=== PATIENT | male | born 1965 | race Two or more races ===

== ENCOUNTER 2017-02-13 18:08 | Inpatient (IN) | payer OTHER ==
[~2017-02-13] VITALS: Ht 175.3 cm; Wt 74.2 kg
[2017-02-13] MEDS ORDERED: ONDANSETRON ODT 4 MG TAB.RAPDIS SL ONE (19:15)
[2017-02-13] MEDS ORDERED: HYDROMORPHONE 1 MG/1 ML DISP.SYRIN IM ONE (19:15)
--- NOTE | 2017-02-13 19:36 | NUR ---
Received report from [facility]. Assumed care of pt at this time. Pt c/o severe rib pain and headache. Pt medicated for discomfort, will monitor for effects of medication. Pt to CT via maia
[2017-02-13] MEDS ORDERED: HYDROMORPHONE 1 MG/1 ML DISP.SYRIN ONE ×2 (19:38→22:29)
[2017-02-13] MEDS ORDERED: ONDANSETRON ODT 4 MG TAB.RAPDIS ONE (19:38)
--- NOTE | 2017-02-13 20:08 | NUR ---
Pt returned from CT via gurney. Sts pain improved. Sts pain is 5/10. Pt resting in position of comfort for self. Resp even and unlabored.
[2017-02-13] MEDS ORDERED: IV NORMAL SALINE 1000 ML BAG IV ONE (20:45)
[2017-02-13] MEDS ORDERED: MORPHINE SULFATE 4 MG/1 ML DISP.SYRIN IV ONE (20:45)
[2017-02-13 20:58] LABS: BASOPHILS # (AUTO) 0.1 K/uL (0.0-8.0); BASOPHILS % (AUTO) 0.8 % (0.0-2.0); EOSINOPHILS # (AUTO) 0.1 K/uL (0.0-0.7); EOSINOPHILS % (AUTO) 0.6 % (0.0-7.0); HEMOGLOBIN 14.1 G/DL (14.0-18.0); LYMPHOCYTES % (AUTO) 15.8 % (20.5-51.5); MEAN CORPUSCULAR HEMOGLOBIN 29.6 UUG (27.0-31.0); MEAN CORPUSCULAR HGB CONC 34 g/dL (32.0-37.0); MEAN CORPUSCULAR VOLUME 88.3 FL (82.0-92.0); MONOCYTES # (AUTO) 0.7 K/UL (0.1-1.30); MONOCYTES % (AUTO) 5.5 % (0.0-11.0); NEUTROPHILS # (AUTO) 9.5 K/UL (1.8-8.9); NEUTROPHILS % (AUTO) 77.3 % (38.5-71.5); PLATELET COUNT (AUTO) 196 K/UL (150-450); RED BLOOD CELL COUNT(AUTO) 4.75 MIL/UL (4.7-6.1); WHITE BLOOD COUNT (AUTO) 12.4 K/UL (4.0-11.2)
[2017-02-13 21:18] LABS: CREATININE 1.3 mg/dL (0.6-1.3); POTASSIUM 4.4 mmol/L (3.5-5.1)
[2017-02-13 21:23] LABS: BILIRUBIN,TOTAL 0.5 mg/dL (0.2-1.0); TOTAL PROTEIN, SERUM 7.3 g/dL (6.4-8.2)
[2017-02-13] MEDS ORDERED: NORMAL SALINE FLUSH 10 ML DISP.SYRIN ONE (21:55)
[2017-02-13] MEDS ORDERED: IOHEXOL 300MG/ML 100 ML INFUS..BTL ONE (21:55)
[2017-02-13] MEDS ORDERED: IV NORMAL SALINE 250 ML IV ONE (21:55)
--- NOTE | 2017-02-13 22:00 | NUR ---
Pt to CT via maia
[2017-02-13] MEDS ORDERED: MORPHINE SULFATE 4 MG/1 ML DISP.SYRIN ONE (22:03)
[2017-02-13] MEDS ORDERED: HYDROMORPHONE 1 MG/1 ML DISP.SYRIN IV ONE (22:15)
[2017-02-13] MEDS ORDERED: ONDANSETRON 4 MG/2 ML VIAL IV ONE (22:15)
--- NOTE | 2017-02-13 22:17 | NUR ---
Pt returned from CT, c/o increased severe pain. MD notified, awaiting further orders.
[2017-02-13] MEDS ORDERED: ONDANSETRON 4 MG/2 ML VIAL ONE (22:29)
--- NOTE | 2017-02-13 22:45 | NUR ---
Pt sts pain improved with medication. Pt resting in position of comfort for self. Fluid bolus cont infusing freely to gravity
[2017-02-13] MEDS ORDERED: TAMSULOSIN HCL 0.4 MG CAP.SR.24H PO ONE (23:15)
[2017-02-13] MEDS ORDERED: KETOROLAC TROMETHAMINE 15 MG INJ IVP ONE (23:15)
[2017-02-14] MEDS ORDERED: HYDROMORPHONE 1 MG/1 ML DISP.SYRIN IV ONE (00:45)
--- NOTE | 2017-02-14 01:06 | NUR ---
Call placed to [facility], Dr. Valdez will be paged.
--- NOTE | 2017-02-14 01:07 | NUR ---
Pt c/o pain increasing. MD notified and pt medicated, will monitor for effects of medication. Pt repositioned for comfort.
[2017-02-14] MEDS ORDERED: KETOROLAC TROMETHAMINE 15 MG INJ ONE (01:10)
[2017-02-14] MEDS ORDERED: TAMSULOSIN HCL 0.4 MG CAP.SR.24H ONE (01:11)
[2017-02-14] MEDS ORDERED: HYDROMORPHONE 1 MG/1 ML DISP.SYRIN ONE (01:11)
[2017-02-14] MEDS ORDERED: ACETAMINOPHEN 325 MG TABLET PO PRN (01:30)
[2017-02-14] MEDS ORDERED: Z GUARD REMEDY PASTE 57 GM TUBE TOP PRN (01:30)
[2017-02-14] MEDS ORDERED: TAMSULOSIN HCL 0.4 MG CAP.SR.24H PO ONE (01:30)
[2017-02-14] MEDS ORDERED: HYDROCODONE/APAP 5-325MG TABLET PO PRN (01:30)
[2017-02-14] MEDS ORDERED: CEFTRIAXONE 1 G in IV DEXTROSE 5% 50 ML IV SCH (01:30)
[2017-02-14] MEDS ORDERED: MAGNESIUM HYDROXIDE 30 ML LIQUID UDC PO PRN (01:30)
[2017-02-14] MEDS ORDERED: ONDANSETRON 4 MG/2 ML VIAL IV PRN (01:30)
--- NOTE | 2017-02-14 01:40 | NUR ---
Pt resting in position of comfort for self. Pt denies pain at this time. Admission pending
--- NOTE | 2017-02-14 02:28 | NUR ---
Report called to [facility]m. Preparing to transfer pt to the floor.
--- NOTE | 2017-02-14 03:40 | NUR ---
ADMITTED THIS 51 Y.O. MALE VIA . CHIEF COMPLAINTS OF ABDOMINAL AND FLANK PAIN,CT SCAN SHOWED 1.5 MM KIDNEY STONE. ALSO PT WHILE AT WORK HAD A BOX FELL ON HIS HEAD, SO THEN HE WENT TO ER FOR CHECK UP.ALERT /ORIENTED X 4. NO SOB, NO CHEST PAIN OR DISCOMFORTS NOTED.ADMISSION CARE RENDERED. DR. DUFFY NOTIFIED AND ORDERS GIVEN.NO PASSING OF ANY KIDNEY STONE NOTED. .REQUESTED TO REST AND JUST LEAVE HIM ALONE FOR NOW.
[2017-02-14 03:45] VITALS: BP 156/81
[2017-02-14] MEDS ORDERED: CEFTRIAXONE 1 G VIAL ONE (04:45)
--- NOTE | 2017-02-14 04:50 | NUR ---
IV MEDS ADMINISTERED,SLEPT AT SHORT INTERVALS, NO PAIN PRESENTED.NO ACUTE DISTRESS NOTED.
[2017-02-14] MEDS: IV NS 1000 ML 1,000 ML IV PRN ×2 (04:51→16:36)
[2017-02-14] MEDS: PANTOPRAZOLE SODIUM 40 MG TABLET.DR PO SCH (07:00)
--- NOTE | 2017-02-14 09:00 | NUR ---
RECEIVED PATIENT AWAKE ALERT AND ORIENTED PATIENT EDUCATED ON STRAINING URINE AND PAIN MANAGEMENT AND HE EXPRESSED UNDERSTANDING.
[2017-02-14] MEDS: HYDROMORPHONE 1 MG/1 ML DISP.SYRIN IV PRN ×4 (09:02→22:02)
[2017-02-14 12:13] VITALS: BP 128/75
[2017-02-14 16:32] VITALS: BP 152/85
[2017-02-14 17:12] LABS: *BILIRUBIN,URIN NEGATIVE (NEGATIVE); *BLOOD, URINE Trace-lysed (NEGATIVE); *CLARITY,URINE CLEAR (CLEAR); *COLOR,URINE YELLOW (YELLOW); *KETONES,URINE NEGATIVE (NEGATIVE); *PROTEIN,URINE NEGATIVE (NEGATIVE); *UROBILINOGEN,URINE 0.2 E.U./dl (NORMAL); LEUKOCYTE ESTERASE ,URINE NEGATIVE (NEGATIVE); NITRITE, URINE NEGATIVE (NEGATIVE); UGLUCOSE NEGATIVE (NEGATIVE)
[2017-02-14 17:23] LABS: MUCUS,URINE FEW /LPF (0-FEW); RBC,URINE 0-3 /HPF (0-3); SQUAMOUS EPITHELIAL CELL,UR FEW /HPF (NONE SEEN); WBC,URINE 0-3 /HPF (0-3)
--- NOTE | 2017-02-14 17:27 | NUR ---
PATIENT SEEN AND EXAMINED BY DR FOUNTAIN WITH NEW ORDERS AND NOTED PATIENT IS SCHEDULED FOR SURGERY CYSTOSCOPY WITH STENT PLACEMENT TOMORROW.PATIENT AWARE AND IS AGREEABLE.
[2017-02-14] MEDS ORDERED: FLEET ENEMA 133 ML BOTTLE RC PRN (17:45)
[2017-02-14] MEDS ORDERED: BISACODYL 10 MG SUPP.RECT RC ONE (17:45)
[2017-02-14] MEDS: DOCUSATE SODIUM 250 MG CAPSULE PO SCH (17:55)
--- NOTE | 2017-02-14 18:00 | NUR ---
REMAIN ON PAIN MANAGEMENT ORDERED AND HELPFUL.FAMILY AT THE BEDSIDE CONSCENT FOR CYSTOSCOPY AND STENT PLACEMENT OBTAINED FROM THE PATIENT AND DOCUMENTED.
[2017-02-14 20:00] VITALS: BP 178/89
[2017-02-15] VITALS: BP 166/84
[2017-02-15] MEDS: IV NS 1000 ML 1,000 ML IV PRN ×2 (02:22→23:27)
[2017-02-15] MEDS: HYDROMORPHONE 1 MG/1 ML DISP.SYRIN IV PRN ×6 (02:22→20:48)
[2017-02-15 02:43] VITALS: BP 195/85
--- NOTE | 2017-02-15 02:44 | NUR ---
Consistent elevated blood pressures. Call to MD, pending return call.
[2017-02-15] MEDS ORDERED: CLONIDINE HCL 0.1 MG TABLET PO PRN (03:30)
[2017-02-15] MEDS: CEFTRIAXONE 1 G in IV DEXTROSE 5% 50 ML IV SCH (03:45)
[2017-02-15] MEDS ORDERED: CLONIDINE HCL 0.1 MG TABLET ONE (03:48)
--- NOTE | 2017-02-15 03:48 | NUR ---
Clonidine 0.1mg PO pulled from [facility] at 0348. Administered as orders. See eMAR
[2017-02-15 05:38] VITALS: BP 149/79
[2017-02-15 06:38] LABS: BASOPHILS % (AUTO) 0.4 % (0.0-2.0); EOSINOPHILS # (AUTO) 0.1 K/uL (0.0-0.7); EOSINOPHILS % (AUTO) 0.8 % (0.0-7.0); HEMATOCRIT 37.3 % (40-50); HEMOGLOBIN 12.5 G/DL (14.0-18.0); LYMPHOCYTES % (AUTO) 17.3 % (20.5-51.5); MEAN CORPUSCULAR HEMOGLOBIN 29.2 UUG (27.0-31.0); MEAN CORPUSCULAR HGB CONC 33 g/dL (32.0-37.0); MEAN CORPUSCULAR VOLUME 87.5 FL (82.0-92.0); MONOCYTES # (AUTO) 0.9 K/UL (0.1-1.30); NEUTROPHILS # (AUTO) 8.4 K/UL (1.8-8.9); NEUTROPHILS % (AUTO) 73.5 % (38.5-71.5); PLATELET COUNT (AUTO) 194 K/UL (150-450); RED BLOOD CELL COUNT(AUTO) 4.27 MIL/UL (4.7-6.1); WHITE BLOOD COUNT (AUTO) 11.4 K/UL (4.0-11.2)
[2017-02-15 06:45] LABS: CREATININE 1.5 mg/dL (0.6-1.3); MAGNESIUM 2.3 mg/dL (1.8-2.4); PHOSPHOROUS 4.1 mg/dL (2.5-4.9); POTASSIUM 3.8 mmol/L (3.5-5.1)
[2017-02-15] MEDS: PANTOPRAZOLE SODIUM 40 MG TABLET.DR PO SCH (06:48)
--- NOTE | 2017-02-15 06:57 | NUR ---
Elevated BP managed with PRN medication, now still slightly elevated but trending down. Patient continues to have pain in left flank, abdominal area. Pain managed with PRN medications. Low-grade fever noted, non-pharm measures applied. Patient complains of constipation and no bowel movement x 3 days. Medication and fleet enema administered, patient continues to have constipation. Will endorse to day shift nurse. No other significant issues over night. Patient is resting in bed. A/Ox4. VSS. Room air. BRP. Call light within reach. All needs attended to. SBAR report to [facility]
[2017-02-15] MEDS: DOCUSATE SODIUM 250 MG CAPSULE PO SCH ×2 (09:00→18:06)
[2017-02-15] MEDS ORDERED: NEOSTIGMINE METHYLSULFATE 10 MG/10 ML VIAL IV ONE (10:44)
[2017-02-15] MEDS ORDERED: LIDOCAINE-MPF 2% 5 ML VIAL MC ONE (10:44)
[2017-02-15] MEDS ORDERED: IV NORMAL SALINE 1000 ML BAG IV ONE (10:44)
[2017-02-15] MEDS ORDERED: DEXAMETHASONE SOD PHOSPHATE 4 MG INJ IV ONE (10:44)
[2017-02-15] MEDS ORDERED: PROPOFOL 200 MG/20 ML BOTTLE IV ONE (10:44)
[2017-02-15] MEDS ORDERED: DESFLURANE ANESTHESIA GAS 240 ML BOTTLE IH ONE (10:44)
[2017-02-15] MEDS ORDERED: ONDANSETRON 4 MG/2 ML VIAL IV ONE (10:44)
[2017-02-15] MEDS ORDERED: GLYCOPYRROLATE 0.2 MG/ML VIAL MC ONE (10:44)
[2017-02-15 11:16] VITALS: BP 146/76
[2017-02-15] MEDS ORDERED: CEPH-569 PO (12:15)
[2017-02-15] MEDS ORDERED: DOCU-141 PO (12:19)
[2017-02-15] MEDS ORDERED: ROCURONIUM BROMIDE 50 MG/5 ML VIAL ONE (12:39)
[2017-02-15] MEDS ORDERED: FENTANYL CITRATE 100 MCG/2 ML AMPUL ONE ×2 (12:39→13:57)
[2017-02-15] MEDS ORDERED: MIDAZOLAM HCL 2 MG/2 ML VIAL ONE (12:39)
[2017-02-15] MEDS ORDERED: IOHEXOL-240 MG , 50 ML VIAL IV ONE (12:44)
[2017-02-15] MEDS ORDERED: IOHEXOL 300MG/ML 50 ML VIAL ONE (13:05)
--- NOTE | 2017-02-15 14:00 | NUR ---
returned from rr. stable. still c/o some abd. pain. at bedside. pt. becoming agitated states he thought he would be "all better" after surg. Dr. Blair spoke with post op--explained procedure and need for follow-up care. pt. upset he needs a follow-up procedure states he did not know---- states she always understood that this would be a 2 part procedure and that stone removal would not be done today and required follow-up.
[2017-02-15] MEDS ORDERED: PHENAZOPYRIDINE HCL 100 MG TABLET PO PRN (14:30)
[2017-02-15 16:06] VITALS: BP 147/90
[2017-02-15] MEDS: CIPROFLOXACIN HCL 250 MG TABLET PO SCH (16:17)
--- NOTE | 2017-02-15 19:30 | NUR ---
RECEIVED PATIENT IN BED. HOB ELEVATED. ALERT AND ORIENTED Xs 4. ABLE TO MAKE NEEDS KNOWN. SAFETY INITIATED. CALL LIGHT WITHIN REACH. NO ACUTE DISTRESS NOTED AT THIS TIME. WILL CONTINUE TO MONITOR.
[2017-02-15 20:08] VITALS: BP 146/78
[2017-02-16] MEDS: CEFTRIAXONE 1 G in IV DEXTROSE 5% 50 ML IV SCH (03:48)
[2017-02-16 04:45] VITALS: BP 157/78
[2017-02-16] MEDS: PANTOPRAZOLE SODIUM 40 MG TABLET.DR PO SCH (06:10)
--- NOTE | 2017-02-16 07:00 | NUR ---
PT IS SITTING IN BED COMFORTABLY. NO S/S OF RESPIRATORY DISTRESS NOTED. NO PAIN NOTED. IV INTACT/PATENT. ALL SAFETY NEEDS ARE MET.
--- NOTE | 2017-02-16 07:41 | NUR ---
PATIENT SLEPT COMFORTABLY THROUGHOUT THE NIGHT. NO SIGNS OF DISTRESS NOTED AT THIS TIME. ENCOURAGED DEEP BREATH AND COUGH. SPUTUM COLLECTION INSTRUCTION GIVEN. PATIENT ACKNOWLEDGED UNDERSTANDING. O2 SAT AT 95%. VS AFEBRILE. ALL MEDS GIVEN ORDERED. NEEDS MET. SAFETY INITIATED THROUGHOUT THE NIGHT. CALL LIGHT WITHIN REACH.
[2017-02-16] MEDS: CIPROFLOXACIN HCL 250 MG TABLET PO SCH (08:21)
[2017-02-16] MEDS: DOCUSATE SODIUM 250 MG CAPSULE PO SCH (08:21)
--- NOTE | 2017-02-16 10:45 | NUR ---
DISCHARGE NOTE: PT REFUSED PHARMACIST TO COME GIVE EDUCATION ON PRESCRIPTION, STATES"I JUST WANT TO GO HOME". DOCTOR ROBERTA SAW THE PT, PER DR. GRANADOS PT CAN BE DISCHARGE, PT HAD BM SUCCESSFULLY. NO PAIN REPORTED. IV REMOVED. NO S/S OF RESPIRATORY DISTRESS NOTED. PT LEFT WITH , NO DIZZINESS REPORTED.
== END 2017-02-16 10:45 | disposition home or self-care (01) | DRG 694 ==
LOC: ER 18:17 → EDBD 18:17 → MED 02-14 01:20
PROVIDERS: ADMIT Internal Medicine; ATTEND Internal Medicine
PROC: BT1F1ZZ Fluoroscopy of Left Kidney, Ureter and Bladder using Low Osmolar Contrast (ICD-10-PCS; principal; 2017-02-14)
DX: N13.2 Hydronephrosis with renal and ureteral calculous obstruction (principal); S06.9X9A Unspecified intracranial injury with loss of consciousness of unspecified duration, initial encounter; W20.8XXA Other cause of strike by thrown, projected or falling object, initial encounter; Y92.59 Other trade areas as the place of occurrence of the external cause; Y93.G3 Activity, cooking and baking; Y92.511 Restaurant or cafe as the place of occurrence of the external cause; K59.00 Constipation, unspecified; N40.0 Benign prostatic hyperplasia without lower urinary tract symptoms
CPT/HCPCS: 36415; 70450; 71101; 72125; 73130; 74000; 76000; 83735; 84100; 85025; C1758; C1876; J0696; J1100; J1170; J1885; J2250; J2270; J2405; J2710; J3010; J3490; J7030; J7050; J7060; Q0162; Q9966; Q9967